=== PATIENT | male | born 1970 | race African-American/Black ===

== ENCOUNTER 2016-12-16 21:13 | Inpatient (IN) | payer SELFPAY ==
--- NOTE | 2016-12-16 22:14 | EKG REPORT ---
SEVERITY:- BORDERLINE ECG - SINUS RHYTHM PROBABLE LEFT ATRIAL ABNORMALITY ST ELEV, PROBABLE NORMAL EARLY REPOL PATTERN : Confirmed by: Nubia Guadarrama MD 16-Dec-2016 22:13:33
[2016-12-17] MEDS ORDERED: ONDANSETRON HCL INJ/PF 4 MG/2 ML SDV ONE (05:17)
[2016-12-17] MEDS ORDERED: METOCLOPRAMIDE HCL ORAL SOLN 10 MG/10 ML UDCUP ONE (06:05)
[2016-12-17] MEDS ORDERED: LIDOCAINE 2% VISCOUS SOLN 20 ML UDCUP ONE (06:05)
[2016-12-17] MEDS ORDERED: MAG HYDROX/AL HYDROX/SIMETH SUSP 30 ML UDCUP ONE (06:05)
[2016-12-17] MEDS ORDERED: DEXTROSE 50%-WATER 25 GM/50 ML DISP.SYRIN IV ONE (06:49)
[2016-12-17] MEDS ORDERED: CALCIUM GLUCONATE 1000 MG/10 ML INJ IV ONE (06:50)
[2016-12-17] MEDS ORDERED: LIDOCAINE 1% INJ-PF (10 MG/ML) 30 ML SDV ONE (11:04)
--- NOTE | 2016-12-17 16:40 | OPERATIVE REPORT E ---
Operative Report NAME: CHRISTI PICKERING : 1970 AGE: 46Y DATE OF SURGERY: 12/17/2016 ROOM: PREOPERATIVE DIAGNOSIS: Hyperkalemia needing hemodialysis catheter placement. PROCEDURE: Placement of right internal jugular tri-lumen hemodialysis catheter using ultrasound guidance. SURGEON: MISSY PEDRO M.D. ANESTHESIA: 1% lidocaine. INDICATIONS FOR PROCEDURE: Patient presents with hyperkalemia needing probable dialysis. A tri-lumen hemodialysis catheter has been requested. FINDINGS OF THE PROCEDURE: A tri-lumen hemodialysis catheter was placed using ultrasound via the right internal jugular vein. There was good aspiration of blood through the ports after placement with them being flushed easily. PROCEDURE: After informed consent was obtained, the patient was placed in a supine position in the emergency room. The patient's right neck was prepped and draped in the usual sterile fashion. Using ultrasound, the right internal jugular vein was then identified as well as the internal carotid artery. The skin overlying the vein was then injected with 1% lidocaine. An 18-gauge needle was then inserted through the skin into the internal jugular vein under ultrasound guidance. There was return of dark, nonpulsatile blood. A guidewire was placed through the needle and the needle was withdrawn. The 2 dilators were then placed over the guidewire and removed sequentially. The tri-lumen hemodialysis catheter was then placed over the guidewire and the guidewire was removed. There was good aspiration of blood through all 3 ports with all 3 ports being flushed easily. The catheter was secured to the skin using 3-0 nylon suture. A dry dressing was applied. STAT chest x-ray was ordered. No immediate complications. DICTATING PHYSICIAN: MISSY PEDRO M.D. [id number] PHY#: [id number] ID: [id number] JOB#: [id number] ACCT: [id number] cc:MISSY PEDRO M.D. >
[2016-12-17] MEDS ORDERED: HEPARIN SOD (PORCINE) 1,000 UNIT/ML 10 ML VIAL ONE (17:36)
[2016-12-18 00:24] LABS: ANION GAP 10 (5-19); BLOOD UREA NITROGEN 26 mg/dL (7-20); CALCIUM 8.2 mg/dL (8.4-10.2); CARBON DIOXIDE 26 mmol/L (22-30); CHLORIDE 103 mmol/L (98-107); CREATININE RESULT 1.53 mg/dL (0.52-1.25); GLUCOSE 106 mg/dL (75-110); POTASSIUM 3.7 mmol/L (3.6-5.0); SODIUM 138.7 mmol/L (137-145)
[2016-12-18] MEDS ORDERED: HEPARIN SOD (PORCINE) 5,000 UNIT/ML 1 ML SYRINGE ONE (06:11)
[2016-12-18] MEDS: HEPARIN SOD (PORCINE) 5,000 UNIT/ML 1 ML SYRINGE SUBCUT SCH ×3 (06:33→21:15)
[2016-12-18 06:45] LABS: APPEARANCE,URINE CLEAR; BILIRUBIN,URINE NEGATIVE (NEGATIVE); GLUCOSE, URINE NEGATIVE (NEGATIVE); KETONES,URINE NEGATIVE (NEGATIVE); LEUKOCYTE ESTERASE,URINE NEGATIVE (NEGATIVE); NITRITE,URINE NEGATIVE (NEGATIVE); PROTEIN,URINE NEGATIVE (NEGATIVE); URINE SPECIFIC GRAVITY 1.019; UROBILINOGEN,URINE NEGATIVE mg/dL (<2.0)
[2016-12-18 07:02] LABS: ANION GAP 9 (5-19); BLOOD UREA NITROGEN 23 mg/dL (7-20); CALCIUM 8.2 mg/dL (8.4-10.2); CARBON DIOXIDE 27 mmol/L (22-30); CHLORIDE 105 mmol/L (98-107); CREATININE RESULT 1.45 mg/dL (0.52-1.25); GLUCOSE 98 mg/dL (75-110); POTASSIUM 4.3 mmol/L (3.6-5.0); SODIUM 140.9 mmol/L (137-145)
[2016-12-18 07:05] LABS: URINE BARBITURATES SCREEN NEGATIVE; URINE METHADONE SCREEN NEGATIVE; URINE OPIATES LOW NEGATIVE; URINE PHENCYCLIDINE SCREEN NEGATIVE
--- NOTE | 2016-12-18 08:57 | HISTORY AND PHYSICAL E ---
History and Physical NAME: CHRISTI PICKERING : 1970 AGE: 46Y ADMITTED: 12/16/2016 ROOM: [facility] PRIMARY CARE PHYSICIAN: None. REASON FOR ADMISSION: Nausea, vomiting, and dizziness. HISTORY OF PRESENT ILLNESS: The patient is a 46-year-old male with no significant past medical history, works actively in his business, which is [employer]. Yesterday, all day, the patient had been working hard without breakfast as well as lunch, nor dinner. He tried to finish the work. Later on in the day, he noticed darkening of urine to like a tea color. He subsequently developed some cramping and eventually developed abdominal discomfort with associated nausea and vomiting. He likewise developed spasms. He started feeling sweaty, lightheaded, and dizzy. The patient went home and rested. The patient stated that he has a cooler in his trunk and he drinks enough fluids. However, this morning, his symptoms still persisted. He started having episodes of diarrhea, but only on 1 occasion. The spasms persisted, nausea and vomiting persisted, abdominal pain is worse. There is no definite fever. No dysuria, urgency, or frequency. No penile discharge or bleeding. The patient went to the emergency room for evaluation. He was found to have a potassium of 6.68, creatinine of 3.75, BUN of 41.8. EKG: Sinus tachycardia. The patient was given fluids. The patient was given albuterol as well as calcium and insulin and D50. The patient was then referred for admission. PAST MEDICAL HISTORY: None. PAST SURGICAL HISTORY: None. ALLERGIES: He denies any drug allergies. SOCIAL HISTORY: Smokes about 3 packs of cigarettes per day, but denies drug abuse. Occasionally drinks alcohol. FAMILY HISTORY: Family history is negative for any illness. MEDICATIONS: He is not on any prescription medication. REVIEW OF SYSTEMS: The patient denies any chills or fever. There is occasional muscle aches and pain, but no arthralgias. There is no headache, but slightly dizzy and lightheaded. There is no blurring of vision, doubling of vision. No nasal congestion, postnasal drip, or sneezing. No sore throat, no swollen glands in the neck. There is no cough. There is no hemoptysis. There is no chest pain, palpitations, PND, orthopnea. The patient had easy fatigability, but no shortness of breath at rest. There is no wheezing. No hemoptysis. There is no chest pain. No palpitations, PND, orthopnea. There is no melena, hematochezia, hematemesis. No dysuria, urgency, or frequency. No penile discharge or bleeding. No heat or cold intolerance. The patient has some sweating as stated above. No polyuria, polydipsia, polyphagia. No focal weakness, swallowing difficulty, slurring of speech. There is no rash or pruritus. No bleeding tendencies or easy bruisability. All other systems reviewed with the patient other than stated above were negative. PHYSICAL EXAMINATION: GENERAL: The patient is conscious, coherent. He is not in acute distress at the moment. VITAL SIGNS: Blood pressure 118/72, pulse is 112, respirations of 20, temperature - patient is afebrile. HEENT: Normocephalic, atraumatic. [place] palpebral conjunctivae. Anicteric sclerae. Pupils are reactive to light. No nasal or oral discharge. No pharyngeal congestion. NECK: Supple with no JVD or bruit. No anterior neck mass that moves with swallowing. CHEST: Symmetrical on expansion with no retraction. LUNGS: Clear to auscultation bilaterally. No wheezing. No rales were noted. HEART: Regular. No gallops or murmurs. [place] beat fifth left intercostal space midclavicular line. No heaves or thrills were noted. ABDOMEN: Flat. Soft. Minimal discomfort to deep palpation. No rebound or guarding. No bruit. Bowel sounds are normoactive. EXTREMITIES: Lower extremities are non-edematous. Pulses are present bilaterally and equal. Mucosa in nail beds with no cyanosis. DIAGNOSTIC DATA: Initial laboratory: WBC 13.3, hemoglobin 18.7, hematocrit 55.4, platelets of 274. CPK total of 1495. WBC in the urine is 40. Creatinine 3.75, BUN 41.8, glucose 133, sodium 143, potassium 6.68. Troponin reportedly negative. Total protein reportedly 10.53. ASSESSMENT: 1. Acute renal failure. 2. Hyperkalemia. 3. Leukocytosis. 4. Heat exhaustion. PLAN: The patient will be admitted to [facility]. Nephrology was consulted for further management. Temporary dialysis catheter was placed by the surgical service, Dr. Bojorquez. In the meantime, we will recheck potassium level, I will hydrate the patient with normal saline. We will obtain a renal ultrasound. We will monitor electrolytes and creatinine. I will do a rheumatoid factor as well as NIALL. We will also do C-ANCA and P-ANCA. A thyroid panel will also be obtained. DVT prophylaxis with heparin will be placed. Further testing depends on the initial evaluation as outlined above. DICTATING PHYSICIAN: LARRY CORDOVA M.D. [id number] PHY#: [id number] ID: [id number] JOB#: [id number] ACCT: [id number] cc:[facility], MD [place] CORDOVA, LARRY Kumar >
--- NOTE | 2016-12-18 09:37 | CONSULTATION REPORT E ---
Consultation Report NAME: CHRISTI PICKERING : 1970 AGE: 46Y DATE: 12/16/2016 313 A TO: GENESIS SWAIN M.D. FROM: Requesting Physician REASON FOR CONSULTATION: I was asked by the emergency room provider and the hospitalist service, Dr. Cameron, to see this patient because of acute kidney injury and severe hyperkalemia. HISTORY OF PRESENT ILLNESS: The patient is a 46-year-old -[place], pleasant, gentleman without any significant past medical history who went to the emergency room yesterday at around 9 p.m. because of persistent nausea, vomiting. Patient works as a er tech. He said yesterday he worked the whole day and it was a pretty warm day. He said he did not eat anything the whole day but he did try to drink some Gatorade. At around 6 p.m. when he got home, he was not feeling so well and then he started having muscle spasms all over his body from his neck, his arms, his abdomen, his upper and lower extremities. He also started having some nausea and vomiting almost every 10 to 15 minutes and some dizziness. So, he went to the emergency room at around 9 p.m. and he was back in a room at around 4 a.m. He denied any other complaints including fever, chills, cough, colds, chest pain, shortness of breath. He did not really notice any difference in his urine volume yesterday, however, when they asked him for a urine sample early this morning, he said it was tea colored, even looking dark brown. He denies any history of kidney problems in the past. He has not had any kidney stones. He denies any history of hepatitis. He denies any leg swelling. When he came in, he had a BUN of 41.8, creatinine of 3.25 with potassium as high as 6.75 and a calcium of 11.32. Because of severe hyperkalemia, I was then called for consultation early this morning. He had an EKG with some relatively peaked T waves on the precordial leads. So I spoke to the emergency room physician and because of the severe hyperkalemia and some EKG changes, we plan to do a dialysis treatment for this patient. A dialysis catheter was placed by our surgeon, Dr. Bojorquez. While waiting for the dialysis, patient was unable to be given Kayexalate because of the severe vomiting, so I was told that he was given calcium gluconate, insulin with D50/50, and some albuterol neb treatments. He was also given 3 L of IV fluids and when he got here in the ICU prior to dialysis, he is already on his fourth liter of fluid. Patient said that his urine starting clearing up, now it is yellow in color. When I was talking to him this afternoon, he said he is feeling much better. He does not have any more spasms and his nausea and vomiting is much improved. So, this afternoon I am seeing him during dialysis treatment. He is tolerating the procedure well without any problems so far. He is hemodynamically stable and currently his symptoms has really been improved. Review of further testing was done showed that he had an urinalysis in the ER with protein of 100 but no blood although there with a RBC of 6 per high powered field and WBC of 40 per high powered field, but there is significant amount of hyaline cast significant for dehydration. His EKG showed again as mentioned, some peaked T waves in the precordial leads. He denies any other complaints at the moment during dialysis. PAST MEDICAL HISTORY: Patient denies any significant health issues. He denies any diabetes or hypertension. No heart disease. PAST SURGICAL HISTORY: Nothing significant. ALLERGIES: No known drug allergies. MEDICATIONS: None. PERSONAL SOCIAL HISTORY: He smokes about 4-5 cigarettes a day. He drinks about a 6-pack of beer a week. He denies any drug use. He lives with his and they just got . He has a child on the way. FAMILY HISTORY: He denies any significant history other than hypertension in his mother. He denies any known kidney history in the family. REVIEW OF SYSTEMS: GENERAL: When he came in, he was just overall not feeling good but denies any fever. No chills. EYES: No vision problem or eye pain. EARS, NOSE, AND THROAT: No sore throat or sinus congestion. RESPIRATORY: No cough, wheezing, shortness of breath. CARDIOVASCULAR: No chest pain, orthopnea, PND, or leg swelling. GASTROINTESTINAL: He has some positive nausea and vomiting and abdominal pain described as cramping. No diarrhea. GENITOURINARY: No dysuria, urgency, or frequency. He did have some tea colored urine. HEMATOLOGIC: He does not have anemia. No bleeding dyscrasias. ENDOCRINE: No polyuria or polydipsia. PSYCHIATRIC: No depression or anxiety. NEUROLOGIC: No localized weakness or numbness. All systems otherwise negative. PHYSICAL EXAMINATION: GENERAL: Currently patient is awake, alert, communicative, not in any form of any acute cardiorespiratory distress. Tolerating dialysis well. VITAL SIGNS: Blood pressure 124/91, pulse rate of 73, respirations of 17, oxygen saturation 90% on room air. HEENT: He has a normocephalic/atraumatic head. [place] conjunctivae. Anicteric sclerae. Pupils reactive to light. Nose patent. No tonsillar or pharyngeal congestion. NECK: Supple. No cervical lymphadenopathy. No JVD. No thyromegaly. LUNGS: Clear. No crackles or wheezes. No rhonchi. HEART: Regular rate and rhythm. Positive S1, S2. No S3. No S4. No murmurs heard. ABDOMEN: Positive bowel sounds. Soft, nontender. No rebound or guarding. No hepatosplenomegaly. EXTREMITIES: No edema. SKIN: No jaundice or cyanosis. LYMPHATIC: No cervical or axillary lymphadenopathy. VASCULAR: Bilateral apical pulses symmetrical. PSYCHIATRIC: He is cooperative, appropriate, coherent. NEUROLOGIC: Oriented x3. Cranial nerves II-XII intact. Motor and sensory exams grossly normal. INITIAL LABORATORY: Urinalysis: Glucose negative, protein 100, bilirubin negative, urobilinogen negative, Ph of 5, blood negative, ketones negative, nitrate negative, leukocyte small, clarity cloudy, specific gravity 1.027, michael in color, WBC of 40 per high powered field, red blood cells 6 per high powered field, hyaline casts 52 per low powered field. His CK was slightly elevated at 1495.62. CBC: WBC of 13.8, hemoglobin of 18, hematocrit 53.2, platelet count of 282. Repeat potassium was 6.75. Initial CMP include a glucose of 132.92, total protein greater than 11, albumin 5.62, chloride 97.46, potassium 6.68, sodium 143.5, BUN of 41.81, creatinine of 3.75, calcium of 11.32, total bilirubin 1.59, AST of 7.36, alk phos 78.33, ALT of 46.25, direct bilirubin of 0.64. He did have repeat potassium after 3 L of fluid and this came out to be 4.64 but BUN still elevated at 39.23 and creatinine still elevated at 2.32. ASSESSMENT: 1. Acute kidney injury. Patient is nonoliguric, most likely secondary to prerenal azotemia secondary to very severe dehydration. Cannot exclude glomerular disease but possibility is very low. Patient does have very mild proteinuria but no significant hematuria. This might just be secondary to severe dehydration as evident by significant hyaline cast in the urine. 2. Severe hyperkalemia secondary to acute kidney injury. 3. Hypercalcemia secondary to dehydration. 4. Dehydration with nausea and vomiting. PLAN/RECOMMENDATIONS: At this time, we are going to continue dialysis due to the patient's acute kidney injury and hyperkalemia. We will do dialysis for 2-1/2 hours only using 2 potassium bath. We are going to use his newly placed Trialysis catheter. We will not use any heparin. No Procrit and no ultrafiltration. Dr. Cameron, the hospitalist, has ordered some workup including 24-hour urine collection for protein, creatinine clearance, C-ANCA, P-ANCA, NIALL, and rheumatoid factor. I will not order any other further serology at this time because as mentioned above, I think this is just prerenal azotemia. I expect his kidney function including the electrolytes including potassium and calcium to be much improved and probably normal by tomorrow. Monitor kidney function, electrolytes, and urine output after dialysis. I will not be available starting tonight until Thursday. I will inform Dr. Justo Thayer who will be covering me in my absence to followup the patient. Thank you very much for this consultation. DICTATING PHYSICIAN: GENESIS SWAIN M.D. [id number] PHY#: [id number] ID: [id number] JOB#: [id number] ACCT: [id number] cc:GENESIS SWAIN M.D. >
[2016-12-18] MEDS ORDERED: NORMAL SALINE 1000 ML 1,000 ML IV PRN (10:40)
[2016-12-18] MEDS: LANSOPRAZOLE 30 MG TAB.RAP.DR PO SCH (10:47)
[2016-12-18] MEDS: DOCUSATE SODIUM 100 MG CAPSULE PO SCH ×2 (10:47→17:58)
[2016-12-18 12:37] LABS: HEMATOCRIT 55.4 % (37.9-51.0); HEMOGLOBIN 18.7 g/dL (13.5-17.0); HGB HCT DIFFERENCE 0.7; MEAN CORPUSCULAR HEMOGLOBIN 27.1 pg (27.0-33.4); MEAN CORPUSCULAR HGB CONC 33.7 g/dL (32.0-36.0); MEAN CORPUSCULAR VOLUME 81 fl (80-97); RED BLOOD COUNT 6.89 10^6/uL (4.35-5.55); RED CELL DISTRIBUTION WIDTH 13.8 % (11.5-14.0); WHITE BLOOD COUNT 13.3 10^3/uL (4.0-10.5)
--- NOTE | 2016-12-18 12:37 | PROGRESS NOTE E ---
Progress Note NAME: CHRISTI PICKERING : 1970 AGE: 46Y DATE: 12/18/2016 ROOM: 313 SUBJECTIVE: The patient voiced no complaints at all. No chest pain or pleurisy. No shortness of breath, nausea or vomiting, abdominal pain, chills or fever. Urine output, however, reportedly still low. Denies any dysuria, urgency, or frequency. OBJECTIVE: VITAL SIGNS: Blood pressure 107/77, pulse 77, respirations 20, temperature 97.3. GENERAL: The patient is awake. She is not in acute distress. NECK: No jugular venous distention. LUNGS: Lung sounds are clear to auscultation bilateral. No rales or wheezing. HEART: Regular with no gallops or murmurs. ABDOMEN: Soft, nondistended. Bowel sounds are present. EXTREMITIES: Lower extremities nonedematous. Mucosae and nail beds with no cyanosis. LABORATORY: Potassium is now normal. Creatinine down to 1.45. TSH elevated at 11.5. Urine culture is pending. ASSESSMENT: 1. ACUTE RENAL FAILURE. 2. HYPERKALEMIA. 3. LEUKOCYTOSIS. 4. HEAT EXHAUSTION. 5. ELEVATED TSH. PLAN: 1. Continue IV hydration and monitor urine output. 2. Check free T4. 3. Continue supportive care. 4. Awaiting serologies and 24-hour urine to be completed. DICTATING PHYSICIAN: LARRY CORDOVA M.D. [id number] PHY#: [id number] ID: [id number] JOB#: [id number] ACCT: [id number] cc: >
[2016-12-18 12:38] LABS: BASOPHILS % (MANUAL) 0 % (0-2); EOSINOPHILS % (MANUAL) 0 % (0-6); LYMPHOCYTES % (MANUAL) 12 % (13-45); NUCLEATED RED BLOOD CELLS 1 /100 WBC (0); POLYCHROMASIA SLIGHT; TARGET CELLS 1+; TOTAL CELLS COUNTED 100; TOXIC GRANULATION SLIGHT
[2016-12-18 13:36] LABS: APPEARANCE,URINE CLOUDY; BILIRUBIN,URINE NEGATIVE (NEGATIVE); GLUCOSE, URINE NEGATIVE (NEGATIVE); KETONES,URINE NEGATIVE (NEGATIVE); LEUKOCYTE ESTERASE,URINE SMALL (NEGATIVE); NITRITE,URINE NEGATIVE (NEGATIVE); PROTEIN,URINE 100 mg/dL (NEGATIVE); URINE SPECIFIC GRAVITY 1.027; UROBILINOGEN,URINE NEGATIVE mg/dL (<2.0)
[2016-12-18] MEDS ORDERED: CEFAZOLIN 1 GM/D5W RTU 1 GM/50 ML RTUPB IV ONE (19:30)
--- NOTE | 2016-12-18 20:29 | PDOC PROGRESS REPORT ---
Subjective Progress Note for:: 12/18/16 Subjective:: Covering for Dr Palomino.C/o painful, tender red streak on right arm today.No fever or chills.Had difficult vensection yesterday in rifgt ante cubital vein. Making good urine. Physical Exam Vital Signs: Temp Pulse Resp BP Pulse Ox 98.5 F 67 19 121/85 100 12/18/16 15:19 12/18/16 15:19 12/18/16 15:19 12/18/16 15:19 12/18/16 15:19 Intake & Output 12/17/16 12/18/16 12/19/16 06:59 06:59 06:59 Intake Total 1800 3101 Output Total 1550 Balance 1800 1551 Weight 81.5 kg General appearance: PRESENT: no acute distress Exam: red tender phelbitis over right arm Respiratory exam: PRESENT: clear to auscultation vicente. ABSENT: crackles Cardiovascular exam: PRESENT: +S1, +S2 Results Laboratory Results: 12/18/16 06:20 12/18/16 12/18/16 12/18/16 05:21 06:20 06:20 Sodium 140.9 Potassium 4.3 Chloride 105 Carbon Dioxide 27 Anion Gap 9 BUN 23 H Creatinine 1.45 H Est GFR ( Amer) > 60 Est GFR (Non-Af Amer) 53 L Glucose 98 Calcium 8.2 L TSH 11.50 H Free T4 Urine Color YELLOW Urine Appearance CLEAR Urine pH 7.0 Ur Specific Rogers 1.019 Urine Protein NEGATIVE Urine Glucose (UA) NEGATIVE Urine Ketones NEGATIVE Urine Blood NEGATIVE Urine Nitrite NEGATIVE Ur Leukocyte Esterase NEGATIVE Urine WBC (Auto) 5 12/18/16 06:20 Sodium Potassium Chloride Carbon Dioxide Anion Gap BUN Creatinine Est GFR ( Amer) Est GFR (Non-Af Amer) Glucose Calcium TSH Free T4 0.82 Urine Color Urine Appearance Urine pH Ur Specific Rogers Urine Protein Urine Glucose (UA) Urine Ketones Urine Blood Urine Nitrite Ur Leukocyte Esterase Urine WBC (Auto) Impressions: Chest X-Ray 12/18/16 00:00 IMPRESSION: NO ACUTE RADIOGRAPHIC FINDING IN THE CHEST. Trialysis catheter. Renal Ultrasound 12/18/16 00:00 IMPRESSION: NORMAL RENAL AND BLADDER ULTRASOUND. Assessment & Plan - Diagnosis (1) AWAIS (acute kidney injury) Plan: stable on current treatments.See need for dialysis in Am (3) Thrombophlebitis arm Plan: get blood c&s x 2. Start IV Ancef 1 gm bid.
[2016-12-18 20:58] LABS: URINE CREATININE 98.9 mg/dL (22-328); URINE PROTEIN 8.5 mg/dL (<12)
[2016-12-19] MEDS: HEPARIN SOD (PORCINE) 5,000 UNIT/ML 1 ML SYRINGE SUBCUT SCH (06:51)
[2016-12-19 07:17] LABS: ANION GAP 7 (5-19); BLOOD UREA NITROGEN 14 mg/dL (7-20); CALCIUM 8.4 mg/dL (8.4-10.2); CARBON DIOXIDE 27 mmol/L (22-30); CHLORIDE 108 mmol/L (98-107); CREATININE RESULT 1.11 mg/dL (0.52-1.25); GLUCOSE 97 mg/dL (75-110); POTASSIUM 4.1 mmol/L (3.6-5.0); SODIUM 142.4 mmol/L (137-145)
[2016-12-19 08:32] VITALS: BP 137/90
[2016-12-19] MEDS: DOCUSATE SODIUM 100 MG CAPSULE PO SCH (08:38)
[2016-12-19] MEDS: LANSOPRAZOLE 30 MG TAB.RAP.DR PO SCH (08:40)
[2016-12-19] MEDS ORDERED: CEFAZOLIN 1 GM/D5W RTU 1 GM/50 ML RTUPB IV SCH (10:00)
[2016-12-19 15:35] LABS: BLOOD UREA NITROGEN 42 mg/dL (7-20); CALCIUM 11.3 mg/dL (8.4-10.2); CREATININE RESULT 3.75 mg/dL (0.52-1.25); GLUCOSE 134 mg/dL (75-110)
[2016-12-19 15:38] LABS: CARBON DIOXIDE 23 mmol/L (22-30); CHLORIDE 97 mmol/L (98-107); POTASSIUM 6.8 mmol/L (3.6-5.0); SODIUM 143.5 mmol/L (137-145)
[2016-12-19 15:39] LABS: ALANINE AMINOTRANSFERASE 46 U/L (21-72); ALBUMIN 5.6 g/dL (3.5-5.0); ALKALINE PHOSPHATASE 78 U/L (38-126); ANION GAP 24 (5-19); ASPARTATE AMINO TRANSFERASE 57 U/L (17-59); BILIRUBIN,DIRECT 0.6 mg/dL (0.0-0.4); BILIRUBIN,TOTAL 1.6 mg/dL (0.2-1.3)
[2016-12-19 15:40] LABS: TOTAL PROTEIN 10.5 g/dL (6.3-8.2)
[2016-12-19 15:42] LABS: BLOOD UREA NITROGEN 39 mg/dL (7-20); CALCIUM 9.5 mg/dL (8.4-10.2); CREATININE RESULT 2.32 mg/dL (0.52-1.25); GLUCOSE 110 mg/dL (75-110)
[2016-12-19 15:44] LABS: ALBUMIN 4.3 g/dL (3.5-5.0); ANION GAP 12 (5-19); CARBON DIOXIDE 21 mmol/L (22-30); CHLORIDE 107 mmol/L (98-107); POTASSIUM 4.6 mmol/L (3.6-5.0); SODIUM 139.9 mmol/L (137-145)
[2016-12-19 15:45] LABS: ALANINE AMINOTRANSFERASE 31 U/L (21-72); ALKALINE PHOSPHATASE 56 U/L (38-126); ASPARTATE AMINO TRANSFERASE 42 U/L (17-59); BILIRUBIN,DIRECT 0.5 mg/dL (0.0-0.4); BILIRUBIN,TOTAL 1.5 mg/dL (0.2-1.3); TOTAL PROTEIN 7.7 g/dL (6.3-8.2)
--- NOTE | 2016-12-19 16:20 | XCELERA REPORT ---
[address] [address] Upper Extremity Venous Evaluation Name: CHRISTI PICKERING Age: 46 yrs Gender: Male : 1970 Patient Status: Inpatient Patient Location: [id number]\S\313\S\A Study Date: 12/18/2016 08:41 PM Procedure: Unilateral duplex scan of the right upper extremity veins was performed, including responses to compression and other maneuvers. Reason For Study: LIZZIE owen Ordering Physician: LARRY CORDOVA Performed By: Becky Rodrigues Right Side Venous Evaluation Superficial phlebitis in the Cephalic vein. Normal vessel filling wall to wall, compression and augmentation as well as Colour flow down to the forearm veins. Interpretation Summary No duplex evidence of DVT or obstruction in the right upper extremity. Superficial phlebitis, as noted. : LARRY CORDOVA [place]
--- NOTE | 2016-12-19 19:27 | DISCHARGE SUMMARY E ---
Discharge Summary NAME: CHRISTI PICKERING : 1970 AGE: 46Y ADMITTED: 12/18/2016 DISCHARGED: 12/19/2016 FINAL DIAGNOSES: 1. Acute renal failure secondary to severe dehydration. 2. Hyperkalemia secondary to acute renal failure. 3. Hypercalcemia secondary to dehydration. 4. Thrombophlebitis of the right upper extremity. INSTRUCTIONS: Diet is regular. Activity is as tolerated. Increase oral fluid intake. Follow up final report of blood test as outpatient with primary care physician or Dr. Palomino. Appointments: Primary care physician in 1 week, Dr. Palomino in 1-2 weeks. MEDICATIONS: Cephalexin 500 mg p.o. 4 times a day for 1 week. REASON FOR ADMISSION: Nausea, vomiting and dizziness. HISTORY OF PRESENT ILLNESS/SIGNIFICANT FINDINGS: The patient is a 46-year-old male with no significant past medical history who has been working hard for the last 24 hours with his [employer] business without drinking enough fluid and having breakfast, lunch or dinner in an attempt to try to finish his work. He started to develop nausea, vomiting and dizziness. The patient went to the emergency room for evaluation. He was found to have a potassium of 6.68 and creatinine of 3.37. Intravenous fluids were given as well as insulin, D50, albuterol. The patient was then referred for admission. On examination, blood pressure was 118/72, pulse 112, respirations 20, and the patient was afebrile. General physical examination was essentially unremarkable, however. Initial laboratory had a WBC of 13.3, hemoglobin 18.7, hematocrit 55.4, platelet count 274, CPK total of 1495. WBC in the urine is 40. Creatinine is 3.75. Troponin was negative. Total protein mildly elevated at 10.53. The patient was subsequently admitted for further management. CONSULTATION: Dr. Palomino. Additional consultation with Dr. Bojorquez. PROCEDURE: Emergent hemodialysis. HOSPITAL COURSE: The patient was admitted to the [facility]. Dr. Bojorquez was consulted as well as Dr. Palomino, nephrology, was consulted. Emergent vascular catheter was placed and eventually the patient underwent hemodialysis. Subsequently the patient's hyperkalemia was corrected and creatinine trended down. The patient was begun on intravenous fluid hydration. His calcium level normalized subsequently. With the above measures, his creatinine likewise improved and normalized. The patient's symptomatology resolved. Course was noted, however, for some redness on the right upper extremity from a previous venipuncture site. Suspected thrombophlebitis was made and, therefore, an antibiotic was started. Venous ultrasound was negative for DVT as reported. The patient improved, creatinine normalized, potassium was normal. The rest of the hospital stay was essentially unremarkable. The patient was instructed to follow up results on an outpatient basis as stated above. A 24-hour urine for protein was essentially unremarkable for significant proteinuria. DICTATING PHYSICIAN: LARRY CORDOVA M.D. [id number] PHY#: [id number] ID: [id number] JOB#: [id number] ACCT: [id number] cc:LARRY CORDOVA M.D. > MTDD
== END 2016-12-19 12:00 | disposition home or self-care (01) | DRG 684 ==
LOC: ER 21:13 → UNDOADMIN 12-17 08:00 → ICU 12-17 08:00 → 3W 12-17 18:00 → ICU 12-18 02:15 → 3W 12-18 02:15
PROC: 5A1D00Z (ICD-10-PCS; principal; 2016-12-17)
PROC: 02HV33Z Insertion of Infusion Device into Superior Vena Cava, Percutaneous Approach (ICD-10-PCS; 2016-12-17)
PROC: B548ZZA Ultrasonography of Superior Vena Cava, Guidance (ICD-10-PCS; 2016-12-17)
DX: N17.9 Acute kidney failure, unspecified (principal); E87.5 Hyperkalemia; I80.8 Phlebitis and thrombophlebitis of other sites; E83.52 Hypercalcemia; E86.0 Dehydration; F17.210 Nicotine dependence, cigarettes, uncomplicated; X30.XXXA Exposure to excessive natural heat, initial encounter; Y93.H2 Activity, gardening and landscaping; Y92.9 Unspecified place or not applicable
CPT/HCPCS: 36415; 71010; 76770; 80048; 80053; 80307; 81001; 82550; 82570; 84156; 84439; 84443; 84484; 85025; 85652; 86038; 86304; 86430; 87040; 87086; 93005; 93010; 93971; 96361; 96365; 96375; 99285; C1752; J0690; J1644

== ENCOUNTER 2017-08-27 11:30 | Emergency (ER) | payer OTHER ==
[2017-08-27 11:53] VITALS: BP 134/99
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
[2017-08-27] MEDS ORDERED: HYDROCODONE/ACETAMINOPHEN 5-325 MG TABLET PO ONE (14:14)
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
== END 2017-08-27 16:13 | disposition home or self-care (01) ==
LOC: ER 11:30
DX: S49.92XA Unspecified injury of left shoulder and upper arm, initial encounter (principal); M54.5 Low back pain; V58.6XXA Passenger in pick-up truck or van injured in noncollision transport accident in traffic accident, initial encounter; F17.210 Nicotine dependence, cigarettes, uncomplicated
CPT/HCPCS: 99284; 73030; 72125; 72128; 72131; L0120

== ENCOUNTER 2017-08-31 17:39 | Emergency (ER) | payer SELFPAY ==
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
[2017-08-31 19:20] VITALS: BP 132/97
== END 2017-08-31 19:20 | disposition home or self-care (01) ==
LOC: ER 17:39
DX: S06.0X0A Concussion without loss of consciousness, initial encounter (principal); S16.1XXA Strain of muscle, fascia and tendon at neck level, initial encounter; R51 Headache; R42 Dizziness and giddiness; R11.0 Nausea; M54.9 Dorsalgia, unspecified; M54.2 Cervicalgia; H53.8 Other visual disturbances; V87.7XXA Person injured in collision between other specified motor vehicles (traffic), initial encounter
CPT/HCPCS: 99283

== ENCOUNTER 2017-09-20 12:42 | Emergency (ER) | payer OTHER ==
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
[2017-09-20 17:17] VITALS: BP 130/82
== END 2017-09-20 17:15 | disposition home or self-care (01) ==
LOC: ER 12:42
DX: F07.81 Postconcussional syndrome (principal); S09.90XA Unspecified injury of head, initial encounter; R42 Dizziness and giddiness; M54.2 Cervicalgia; R20.0 Anesthesia of skin; H53.8 Other visual disturbances; V58.1XXA Passenger in pick-up truck or van injured in noncollision transport accident in nontraffic accident, initial encounter; F17.200 Nicotine dependence, unspecified, uncomplicated
CPT/HCPCS: 72141; 99284

== ENCOUNTER 2018-01-28 17:31 | Emergency (ER) | payer OTHER ==
[2018-01-28] MEDS ORDERED: ONDANSETRON 4 MG TAB.RAPDIS PO ONE (18:12)
[2018-01-28] MEDS ORDERED: NORMAL SALINE 1000 ML 1,000 ML IV ONE ×2 (18:12→20:01)
[2018-01-28] MEDS ORDERED: ACETAMINOPHEN 325 MG TABLET PO ONE (18:12)
--- NOTE | 2018-01-28 18:14 | ER Document Report ---
ED Medical Screen (RME) - General Chief Complaint: Nausea/Vomiting Stated Complaint: NAUSEA/VOMITTING Time Seen by Provider: 01/28/18 18:07 Notes: RAPID MEDICAL EVALUATION DISCLOSURE I have seen this patient as part of a Rapid Medical Evaluation and, if applicable, placed any initially appropriate orders. The patient will be seen and fully evaluated, including a full history and physical exam, by a provider ( in Main ED or Fast Track) when a room becomes available. 47-year-old male here with complaints of generalized weakness feeling bad and possible dehydration. He has been cutting grass all day in the 100 weather outside. He has been using a riding mower instead of a push mower. He has been trying to stay hydrated however is unsure if he has done a good job of this. He had something similar last year and required dialysis but does not currently have any kidney disease, reports. EXAM CTAB RRR Alert and oriented TRAVEL OUTSIDE OF THE [place] IN LAST 30 DAYS: No - Related Data Allergies/Adverse Reactions: No Known Allergies Allergy (Verified 01/28/18 17:32) Past Medical History - Social History Chew tobacco use (# tins/day): No Frequency of alcohol use: Occasional Drug Abuse: None Renal/ Medical History: Denies: Hx Peritoneal Dialysis - Immunizations Hx Diphtheria, Pertussis, Tetanus Vaccination: Yes Physical Exam - Vital signs Vitals: Temp Pulse Resp BP Pulse Ox 98.1 F 86 20 133/88 H 100 01/28/18 17:35 01/28/18 17:35 01/28/18 17:35 01/28/18 17:35 01/28/18 17:35 Course - Vital Signs Vital signs: Temp Pulse Resp BP Pulse Ox 98.1 F 86 20 133/88 H 100 01/28/18 17:35 01/28/18 17:35 01/28/18 17:35 01/28/18 17:35 01/28/18 17:35
[2018-01-28 19:19] LABS: ABSOLUTE BASOPHILS # (AUTO) 0.1 10^3/uL (0.0-0.2); ABSOLUTE EOSINOPHILS # (AUTO) 0.2 10^3/uL (0.0-0.6); ABSOLUTE LYMPHOCYTES (AUTO) 2.1 10^3/uL (0.5-4.7); ABSOLUTE MONOCYTES (AUTO) 0.5 10^3/uL (0.1-1.4); ABSOLUTE NEUT (AUTO) 4.5 10^3/uL (1.7-8.2); BASOPHILS % (AUTO) 0.7 % (0-2); EOSINOPHILS % (AUTO) 3.4 % (0-6); HEMATOCRIT 47.4 % (37.9-51.0); HEMOGLOBIN 16.4 g/dL (13.5-17.0); LYMPHOCYTES % (AUTO) 27.9 % (13-45); MEAN CORPUSCULAR HEMOGLOBIN 27.9 pg (27.0-33.4); MEAN CORPUSCULAR HGB CONC 34.7 g/dL (32.0-36.0); MEAN CORPUSCULAR VOLUME 81 fl (80-97); MONOCYTES % (AUTO) 7.3 % (3-13); PLATELET COUNT 226 10^3/uL (150-450); RED BLOOD COUNT 5.89 10^6/uL (4.35-5.55); RED CELL DISTRIBUTION WIDTH 13.6 % (11.5-14.0); SEGMENTED NEUTROPHILS % (AUTO) 60.7 % (42-78); TOTAL CELLS COUNTED % (AUTO) 100 %; WHITE BLOOD COUNT 7.4 10^3/uL (4.0-10.5)
[2018-01-28 19:51] LABS: ALANINE AMINOTRANSFERASE 29 U/L (21-72); ALKALINE PHOSPHATASE 43 U/L (38-126); ANION GAP 10 (5-19); ASPARTATE AMINO TRANSFERASE 26 U/L (17-59); BILIRUBIN,DIRECT 0.3 mg/dL (0.0-0.4); BILIRUBIN,TOTAL 0.9 mg/dL (0.2-1.3); BLOOD UREA NITROGEN 13 mg/dL (7-20); CALCIUM 9.3 mg/dL (8.4-10.2); CARBON DIOXIDE 27 mmol/L (22-30); CHLORIDE 106 mmol/L (98-107); CREATINE KINASE 393 U/L (55-170); GLUCOSE 109 mg/dL (75-110); SODIUM 142.8 mmol/L (137-145); TOTAL PROTEIN 6.8 g/dL (6.3-8.2)
--- NOTE | 2018-01-28 20:17 | ER Document Report ---
ED General - General Chief Complaint: Nausea/Vomiting Stated Complaint: NAUSEA/VOMITTING Time Seen by Provider: 01/28/18 18:07 Mode of Arrival: Ambulatory Information source: Patient Notes: 47-year-old male patient presents with complaint of nausea, vomiting and possible dehydration. 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 Patient reports that he tries to stay hydrated using "smoothie drinks" however he states he has not drink much water. Patient also reports he has not had much to eat. Patient presented to the emergency department as he does have a history of acute renal failure approximately 1 year ago. Patient denies any pain, denies any fever. Patient denies the use of any daily medications. TRAVEL OUTSIDE OF THE [place] IN LAST 30 DAYS: No - Related Data Allergies/Adverse Reactions: No Known Allergies Allergy (Verified 01/28/18 17:32) Past Medical History - General Information source: Patient - Social History Smoking Status: Current Every Day Smoker Chew tobacco use (# tins/day): No Frequency of alcohol use: Occasional Drug Abuse: None Family History: Reviewed & Not Pertinent Patient has suicidal ideation: No Patient has homicidal ideation: No Renal/ Medical History: Reports: Other - Acute renal failure 2017. Denies: Hx Peritoneal Dialysis - Immunizations Immunizations up to date: Yes Hx Diphtheria, Pertussis, Tetanus Vaccination: Yes Review of Systems - Review of Systems Constitutional: No symptoms reported EENT: No symptoms reported Cardiovascular: No symptoms reported Respiratory: No symptoms reported Gastrointestinal: Nausea, Vomiting Genitourinary: No symptoms reported Male Genitourinary: No symptoms reported Musculoskeletal: No symptoms reported Skin: No symptoms reported Hematologic/Lymphatic: No symptoms reported Neurological/Psychological: No symptoms reported Physical Exam - Vital signs Vitals: Temp Pulse Resp BP Pulse Ox 98.1 F 86 20 133/88 H 100 01/28/18 17:35 01/28/18 17:35 01/28/18 17:35 01/28/18 17:35 01/28/18 17:35 - Notes Notes: PHYSICAL EXAMINATION: GENERAL: Well-appearing, well-nourished and in no acute distress. HEAD: Atraumatic, normocephalic. EYES: Pupils equal round and reactive to light, extraocular movements intact, sclera anicteric, conjunctiva are normal. ENT: Nares patent, oropharynx clear without exudates. Moist mucous membranes. NECK: Normal range of motion, supple without lymphadenopathy LUNGS: Breath sounds clear to auscultation bilaterally and equal. No wheezes rales or rhonchi. HEART: Regular rate and rhythm without murmurs ABDOMEN: Soft, nontender, nondistended abdomen. No guarding, no rebound. No masses appreciated. Musculoskeletal: Normal range of motion, no pitting or edema. No cyanosis. NEUROLOGICAL: Cranial nerves grossly intact. Normal speech, normal gait. Normal sensory, motor exams. PSYCH: Normal mood, normal affect. SKIN: Warm, Dry, normal turgor, no rashes or lesions noted. Course - Re-evaluation Re-evalutation: On my initial evaluation patient has already received approximately 500 cc normal saline. Patient reports that he is feeling a little bit better than when he first arrived. Patient denies any specific symptoms, patient reports that he has been overworking himself. 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 Patient reports he has been out of the sun all day long on a riding lawnmower and patient admittedly has not had adequate intake of water today patient also reports that he has not slept much in the last 36 hours. Patient reports that he feels exhausted however he wanted to be checked to make sure he was not in renal failure as he was in 2017. CBC is unremarkable, comprehensive metabolic panel reveals creatinine of 1.48, CK of 393, all electrolytes are within normal limits. Lactic acid is normal at 1.5. Will order patient additional 1000ml normal saline for a total of 2000ml and then discharge home. - Vital Signs Vital signs: Temp Pulse Resp BP Pulse Ox 98.1 F 86 20 133/88 H 100 01/28/18 17:35 01/28/18 17:35 01/28/18 17:35 01/28/18 17:35 01/28/18 17:35 - Laboratory Result Diagrams: 01/28/18 18:45 01/28/18 18:45 Laboratory results interpreted by me: 01/28/18 01/28/18 18:45 18:45 RBC 5.89 H Creatinine 1.48 H Est GFR (Non-Af Amer) 51 L Creatine Kinase 393 H Discharge - Discharge Clinical Impression: Dehydration Condition: Stable Disposition: HOME, SELF-CARE Additional Instructions: Dehydration Dehydration can result from vomiting or diarrhea, fever, or decreased intake of fluids. If severe, hospitalization and intravenous fluids may be required. Most cases are treated at home with fluids by mouth. For the next 24 hours, drink lots of clear fluids. Try to get three liters (3 quarts) of fluid per day. If vomiting occurs, continue to drink the fluids frequently (every 15 to 20 minutes), but in small amounts (one or two ounces). Depending on the type of dehydration, the doctor may prescribe antinausea medicine or potassium replacements. Call the doctor or return for re-examination if you become progressively weak, vomit repeatedly, or have other new symptoms. I am sending you home with some zofran for nausea. Please take 1 tablet every 4-6 hours as needed for nausea or vomiting. Keep hydrated, especially when out in the sun and heat. Referrals: [facility] [Provider Group] - Follow up as needed
[2018-01-28] MEDS ORDERED: ONDANSETRON ODT 4 MG TAB (6 TAB/ER DISP) PO PRN (20:39)
[2018-01-28 20:51] VITALS: BP 124/86
== END 2018-01-28 20:53 | disposition home or self-care (01) ==
LOC: ER 17:31
DX: E86.0 Dehydration (principal); R11.2 Nausea with vomiting, unspecified; F17.200 Nicotine dependence, unspecified, uncomplicated
CPT/HCPCS: 99284; 96360; 96361; 36415; 82550; 83605; 85025; 80053; S0119; J7030

== ENCOUNTER 2018-02-03 18:20 | Emergency (ER) | payer OTHER ==
--- NOTE | 2018-02-03 18:53 | ER Document Report ---
ED Medical Screen (RME) - General Chief Complaint: Syncope Stated Complaint: LIGHT HEADED/LOC Mode of Arrival: Wheelchair Information source: Patient Notes: 47 y.o male with PMHx of acute renal failure presents to the ED with lightheadedness. He reports that he stood up after mowing and became dizzy/ disoriented and fell and then 15 minutes later he fell again and was disoriented but denies any syncopal episodes. Pt was seen here 2 weeks ago for similar symptoms. I have greeted and performed a rapid initial assessment of the patient. A comprehensive ED assessment and evaluation of the patient, analysis of test results, and completion of the medical decision making process will be conducted by additional ED providers. PHYSICAL EXAM: General: Alert, appears well. HEENT: Normocephalic. Atraumatic. Dry mucous membranes. Neck: Supple. Cardiovascular: RRR Respiratory: Wheezing to bilateral lung sultana. Abdominal: No distension. Extremities: Moves all four extremities. Neurological: Normal cognition. AAOx4. Normal speech. Psychological: Normal affect. Normal Mood. Skin: Warm. Dry. Normal color. TRAVEL OUTSIDE OF THE [place] IN LAST 30 DAYS: No - Related Data Allergies/Adverse Reactions: No Known Allergies Allergy (Verified 02/03/18 18:21) Past Medical History - Social History Chew tobacco use (# tins/day): No Frequency of alcohol use: Occasional Drug Abuse: None Renal/ Medical History: Denies: Hx Peritoneal Dialysis - Immunizations Immunizations up to date: Yes Hx Diphtheria, Pertussis, Tetanus Vaccination: Yes Physical Exam - Vital signs Vitals: Temp Pulse Resp BP Pulse Ox 98.6 F 124 H 20 107/81 96 02/03/18 18:31 02/03/18 18:31 02/03/18 18:31 02/03/18 18:31 02/03/18 18:31 Course - Vital Signs Vital signs: Temp Pulse Resp BP Pulse Ox 98.6 F 124 H 20 107/81 96 02/03/18 18:31 02/03/18 18:31 02/03/18 18:31 02/03/18 18:31 02/03/18 18:31 Scribe Documentation - Scribe Written by Tasha:: Tasha Cowan 02/03/18 [id number] acting as scribe for :: Johnny
[2018-02-03] MEDS: NORMAL SALINE 1000 ML 1,000 ML IV PRN ×2 (19:23→19:24)
[2018-02-03] MEDS ORDERED: METOCLOPRAMIDE HCL INJ/PF 10 MG/2 ML SDV IV ONE (19:26)
--- NOTE | 2018-02-03 19:29 | ER Document Report ---
ED General - General Chief Complaint: Syncope Stated Complaint: LIGHT HEADED/LOC Time Seen by Provider: 02/03/18 18:46 Mode of Arrival: Wheelchair Notes: Patient is a 47 year old male that comes to the emergency department for chief complaint of dehydration, being overheated, and feeling lightheaded and dizzy with vision blurring twice and almost passing out while at work today. He also got cramps in his abdomen and legs. He works construction outside. He states that after he got overheated and lightheaded he vomited twice. He denies actually passing out or falling onto the ground. He reports current nausea. He denies any other current symptoms. He denies chest pain, shortness of breath , abdominal pain. Patient denies any daily medications, only reported medical history is dialysis that he got after getting severely dehydrated with a similar scenario in the past. He denies any surgeries. He smokes and drinks, denies any recreational drugs. TRAVEL OUTSIDE OF THE [place] IN LAST 30 DAYS: No - Related Data Allergies/Adverse Reactions: No Known Allergies Allergy (Verified 02/03/18 18:52) Past Medical History - General Information source: Patient - Social History Smoking Status: Current Every Day Smoker Chew tobacco use (# tins/day): No Frequency of alcohol use: Occasional Drug Abuse: None Lives with: Family Family History: Reviewed & Not Pertinent Patient has suicidal ideation: No Patient has homicidal ideation: No - Medical History Medical History: Negative Renal/ Medical History: Denies: Hx Peritoneal Dialysis Surgical Hx: Negative - Immunizations Immunizations up to date: Yes Hx Diphtheria, Pertussis, Tetanus Vaccination: Yes Review of Systems - Review of Systems Constitutional: See HPI EENT: No symptoms reported Cardiovascular: No symptoms reported Respiratory: No symptoms reported Gastrointestinal: See HPI Genitourinary: No symptoms reported Male Genitourinary: No symptoms reported Musculoskeletal: See HPI Skin: No symptoms reported Hematologic/Lymphatic: No symptoms reported Neurological/Psychological: See HPI Physical Exam - Vital signs Vitals: Temp Pulse Resp BP Pulse Ox 98.6 F 124 H 20 107/81 96 02/03/18 18:31 02/03/18 18:31 02/03/18 18:31 02/03/18 18:31 02/03/18 18:31 - Notes Notes: GENERAL: Alert, interacts well. No acute distress. HEAD: Normocephalic, atraumatic. EYES: Pupils equal, round, and reactive to light. Extraocular movements intact. ENT: Oral mucosa dry, tongue midline. NECK: Full range of motion. Supple. Trachea midline. LUNGS: Clear to auscultation bilaterally, no wheezes, rales, or rhonchi. No respiratory distress. HEART: Tachycardia, normal rhythm, no murmur. ABDOMEN: Soft, non-tender. Non-distended. Bowel sounds present in all 4 quadrants. EXTREMITIES: Moves all 4 extremities spontaneously. No edema, normal radial and dorsalis pedis pulses bilaterally. No cyanosis. BACK: no cervical, thoracic, lumbar midline tenderness. No saddle anesthesia, normal distal neurovascular exam. NEUROLOGICAL: Alert and oriented x3. Normal speech. [cranial nerves II through XII grossly intact]. PSYCH: Normal affect, normal mood. SKIN: Warm, dry, normal turgor. No rashes or lesions noted. Course - Re-evaluation Re-evalutation: Patient initially tachycardic, very dry mucous membranes, reporting vomiting, muscle cramps, dehydration. Given Reglan, giving 2 normal saline liter boluses. CBC shows mild leukocytosis, elevation of hemoglobin consistent with dehydration. Chemistry shows mildly elevated renal functioning, mildly elevated creatinine kinase, otherwise unremarkable. On reevaluation patient's tachycardia has completely resolved, he states he feels great, patient drinking fluids without any difficulty. Discussed workup. Patient stating he is ready to go home. Patient will follow up with primary care for evaluation of his creatinine, discussed hydration, medication, return precautions in detail. Patient states satisfaction and agreement. - Vital Signs Vital signs: Temp Pulse Resp BP Pulse Ox 98.1 F 88 16 110/81 96 02/03/18 21:15 02/03/18 21:15 02/03/18 21:15 02/03/18 21:15 02/03/18 21:15 - Laboratory Result Diagrams: 02/03/18 19:11 02/03/18 19:11 Laboratory results interpreted by me: 02/03/18 02/03/18 19:11 19:11 WBC 12.1 H RBC 6.44 H Hgb 17.9 H Hct 51.7 H Seg Neutrophils % 79.2 H Absolute Neutrophils 9.5 H Creatinine 1.46 H Est GFR (Non-Af Amer) 52 L Creatine Kinase 413 H Discharge - Discharge Clinical Impression: Dehydration, Near syncope Heat exhaustion Qualifiers: Encounter type: initial encounter Qualified Code(s): T67.5XXA - Heat exhaustion , unspecified, initial encounter Condition: Stable Disposition: HOME, SELF-CARE Additional Instructions: Your workup shows dehydration, irritation to the kidneys, some elevation of muscle protein in your blood. You have been rehydrated, continue rehydration, have your kidney functioning rechecked with primary care on close follow-up, see referral. Return if you worsen in anyway including passing out, returned vomiting, or any other concerning symptoms. Forms: Return to Work
[2018-02-03 19:31] LABS: ABSOLUTE BASOPHILS # (AUTO) 0.1 10^3/uL (0.0-0.2); ABSOLUTE LYMPHOCYTES (AUTO) 1.7 10^3/uL (0.5-4.7); ABSOLUTE MONOCYTES (AUTO) 0.6 10^3/uL (0.1-1.4); ABSOLUTE NEUT (AUTO) 9.5 10^3/uL (1.7-8.2); BASOPHILS % (AUTO) 1.1 % (0-2); EOSINOPHILS % (AUTO) 0.1 % (0-6); HEMATOCRIT 51.7 % (37.9-51.0); HEMOGLOBIN 17.9 g/dL (13.5-17.0); LYMPHOCYTES % (AUTO) 14.3 % (13-45); MEAN CORPUSCULAR HEMOGLOBIN 27.8 pg (27.0-33.4); MEAN CORPUSCULAR HGB CONC 34.7 g/dL (32.0-36.0); MEAN CORPUSCULAR VOLUME 80 fl (80-97); MONOCYTES % (AUTO) 5.3 % (3-13); PLATELET COUNT 278 10^3/uL (150-450); RED BLOOD COUNT 6.44 10^6/uL (4.35-5.55); RED CELL DISTRIBUTION WIDTH 13.6 % (11.5-14.0); SEGMENTED NEUTROPHILS % (AUTO) 79.2 % (42-78); TOTAL CELLS COUNTED % (AUTO) 100 %; WHITE BLOOD COUNT 12.1 10^3/uL (4.0-10.5)
[2018-02-03 19:50] LABS: ALANINE AMINOTRANSFERASE 25 U/L (21-72); ALBUMIN 4.2 g/dL (3.5-5.0); ALKALINE PHOSPHATASE 49 U/L (38-126); ANION GAP 14 (5-19); ASPARTATE AMINO TRANSFERASE 26 U/L (17-59); BILIRUBIN,DIRECT 0.3 mg/dL (0.0-0.4); BILIRUBIN,TOTAL 0.9 mg/dL (0.2-1.3); BLOOD UREA NITROGEN 16 mg/dL (7-20); CALCIUM 9.6 mg/dL (8.4-10.2); CARBON DIOXIDE 25 mmol/L (22-30); CHLORIDE 105 mmol/L (98-107); CREATINE KINASE 413 U/L (55-170); GLUCOSE 103 mg/dL (75-110); POTASSIUM 4.7 mmol/L (3.6-5.0); TOTAL PROTEIN 7.1 g/dL (6.3-8.2)
[2018-02-03] MEDS ORDERED: ONDANSETRON ODT 4 MG TAB (6 TAB/ER DISP) PO PRN (20:59)
[2018-02-03 21:21] VITALS: BP 110/81
== END 2018-02-03 21:18 | disposition home or self-care (01) ==
LOC: ER 18:20
DX: T67.5XXA Heat exhaustion, unspecified, initial encounter (principal); X58.XXXA Exposure to other specified factors, initial encounter; Y93.H3 Activity, building and construction; Y99.0 Civilian activity done for income or pay; E86.0 Dehydration; R55 Syncope and collapse; R11.2 Nausea with vomiting, unspecified; R25.2 Cramp and spasm; F17.200 Nicotine dependence, unspecified, uncomplicated; R00.0 Tachycardia, unspecified; D72.829 Elevated white blood cell count, unspecified
CPT/HCPCS: 99284; 96361; 96374; 36415; 82550; 83735; 85025; 80053; J2765; J7030

== ENCOUNTER 2018-02-23 19:34 | Emergency (ER) | payer OTHER ==
[2018-02-23 19:43] VITALS: BP 115/78
--- NOTE | 2018-02-23 20:57 | ER Document Report ---
HPI - HPI Pain Level: 4 Notes: Patient is a 47-year-old male no significant past medical history who presents to the ED complaining of an insect bite to his right medial posterior second digit of the hand near the webspace 1 day. Patient states that he felt something bite him and he has had pain since then. Patient states that he did have one episode earlier this morning when he felt a little nauseated, but that resolved within 30 seconds he said. Patient states that he did notice some discharge of the one area that was dried up this afternoon, but he has not noticed any other drainage. Patient states that the pain does not radiate up his dorsal proximal hand. Denies any drug allergies. He has not noticed any red streaking. Denies any headache, fever, neck pain, URI, sore throat, chest pain, palpitations, syncope, cough, shortness of breath, wheeze, dyspnea, abdominal pain, nausea/vomiting/diarrhea, urinary retention, dysuria, hematuria. - ROS Systems Reviewed and Negative: Yes All other systems reviewed and negative - REPRODUCTIVE Reproductive: DENIES: : Past Medical History - Social History Smoking Status: Never Smoker Family History: Reviewed & Not Pertinent Renal/ Medical History: Denies: Hx Peritoneal Dialysis - Immunizations Immunizations up to date: Yes Hx Diphtheria, Pertussis, Tetanus Vaccination: Yes Vertical Provider Document - CONSTITUTIONAL Agree With Documented VS: Yes Notes: PHYSICAL EXAMINATION: GENERAL: Well-appearing, well-nourished and in no acute distress. LUNGS: Breath sounds clear to auscultation bilaterally and equal. No wheezes rales or rhonchi. HEART: Regular rate and rhythm without murmurs, rubs, gallops. Musculoskeletal: Rt hand/fingers: FROM to passive/active. Strength 5+/5. N/v intact distal. Extremities: No cyanosis, clubbing, or edema b/l. Peripheral pulses 2+. Capillary refill less than 3 seconds. NEUROLOGICAL: Cranial nerves grossly intact. Normal speech, normal gait. Normal sensory, motor exams PSYCH: Normal mood, normal affect. SKIN: Rt 2nd digit: there is a 3mm and 2mm raised erythemic area where the alleged bites took place. + mild tenderness to palp w/o streaks, purulence, obvious fluctuance. + erythema localized without diffuse cellulitis noted. No necrotic tissue noted. - INFECTION CONTROL TRAVEL OUTSIDE OF THE [place] IN LAST 30 DAYS: No Course - Re-evaluation Re-evalutation: 02/23/18 20:54 Patient is an afebrile, well-hydrated, 47-year-old male presents to the ED with an insect bite between the second and third digits of his right hand. It does appear that he does have some mild cellulitis localized. Vitals are acceptable without any significant tachycardia, tachypnea, or hypoxia. PE is otherwise unremarkable for any neurovascular compromise, obvious tendon/ligament rupture, obvious fracture/dislocation, septic joint. Low suspicion for any other sepsis or lymphangitis. Needle incision and drainage performed and only a minimal scant purulence was expressed from the smaller lesion. I was unable to have enough substance for a wound culture. Wound dressing was placed and wound instructions reviewed. I will be sending him home with a prescription for Keflex and Bactrim. Conservative measures otherwise for symptoms. Recheck with your PCM in 2-3 days. Return to the ED with any worsening/concerning symptoms otherwise as reviewed in discharge. Patient is in agreement. - Vital Signs Vital signs: Temp Pulse Resp BP Pulse Ox 98.4 F 87 17 115/78 96 02/23/18 19:42 02/23/18 19:42 02/23/18 19:42 02/23/18 19:42 02/23/18 19:42 Procedures - Incision and Drainage Right Finger 2nd digit Time completed: 20:50 - Patient tolerated procedure well without complications. unable to obtain wound cx. Type: Simple I&D procedure: Betadine prep applied Incision Method: Incision made with needle Amount/type of drainage: scant to no purulence. Minimal blood Discharge - Discharge Clinical Impression: Insect bite Qualifiers: Encounter type: initial encounter Qualified Code(s): W57.XXXA - Bitten or stung by nonvenomous insect and other nonvenomous arthropods, initial encounter Cellulitis Qualifiers: Site of cellulitis: extremity Site of cellulitis of extremity: finger Laterality: right Qualified Code(s): L03.011 - Cellulitis of right finger Condition: Stable Disposition: HOME, SELF-CARE Instructions: Insect Bites ([facility]), Cephalexin ([facility]), Trimethoprim-Sulfa ([facility]) Additional Instructions: Keep the skin clean Wash with soap and water Tylenol/ibuprofen if needed Triple antibiotic ointment daily Epsom salt soaks Take medication as directed Monitor for any worsening symptoms Recheck with your PCM in 2-3 days Return to the ED with any worsening symptoms and/or development of fever, headache, chest pain, palpitations, syncope, shortness of breath, trouble breathing, abdominal pain, n/v/d, abscess, purulent discharge, red streaks, worsening swelling, or other worsening symptoms that are concerning to you. Prescriptions: Cephalexin Monohydrate [Keflex 500 mg Capsule] 500 mg PO TID #30 capsule Sulfamethoxazole/Trimethoprim [Bactrim Ds Tablet] 1 each PO BID #20 tablet Referrals: [facility] [Provider Group] - Follow up as needed [facility] [Provider Group] - Follow up as needed
== END 2018-02-23 21:21 | disposition home or self-care (01) ==
LOC: ER 19:34
PROC: 0H9FXZZ Drainage of Right Hand Skin, External Approach (ICD-10-PCS; principal; 2018-02-23)
DX: L03.011 Cellulitis of right finger (principal); R11.0 Nausea; W57.XXXA Bitten or stung by nonvenomous insect and other nonvenomous arthropods, initial encounter
CPT/HCPCS: 99281

== ENCOUNTER 2019-01-09 20:14 | Emergency (ER) | payer MEDICAID, OTHER ==
[2019-01-09 20:23] VITALS: BP 109/87
--- NOTE | 2019-01-09 22:32 | RADIOLOGY REPORT (SQ) ---
EXAM DESCRIPTION: Right hand RadLex: XR HAND 3 OR MORE VIEWS Views: 3 CLINICAL HISTORY: 48 years Male, punched wall COMPARISON: None. FINDINGS: There is acute transverse fracture across the proximal shaft of the 4th metacarpal, with half shaft dorsal displacement and slight lateral angulation. There is also lucency through the distal one 3rd of the 5th metacarpal, in an area of remodeling, suggesting an acute on chronic fracture, with slight palmar angulation. Chronic remodeling of the distal head of the 1st metacarpal suggests old healed fracture. No hyperdense foreign bodies. IMPRESSION: 1. Acute fractures of the 4th and 5th metacarpals, as described
[2019-01-09] MEDS ORDERED: HYDROCODONE/ACETAMINOPHEN 5-325 MG TABLET PO ONE (23:22)
--- NOTE | 2019-01-10 00:19 | ER Document Report ---
ED General - General Chief Complaint: Hand Injury Stated Complaint: HAND INJURY Time Seen by Provider: 01/09/19 22:44 Primary Care Provider: MORENITA RODRIGUEZ DO [ACTIVE STAFF] - Follow up in 3-5 days (call office in the morning to make a close follow up appointment) Notes: Patient is a pleasant 48-year-old male who punched a wall and now has swelling over the dorsum of his right hand. He says he has a lot of pain in the ulnar aspect of his hand. No weakness or numbness into the fingers of the hand. He says it does hurt in his hand whenever he tries to move his fourth or fifth digits. He denies any pain anywhere else. He does admit to a previous boxer fracture of the same hand. TRAVEL OUTSIDE OF THE [place] IN LAST 30 DAYS: No - Related Data Allergies/Adverse Reactions: No Known Allergies Allergy (Verified 02/03/18 18:52) Past Medical History - Social History Smoking Status: Unknown if Ever Smoked Frequency of alcohol use: None Drug Abuse: None Family History: Reviewed & Not Pertinent Patient has suicidal ideation: No Patient has homicidal ideation: No Renal/ Medical History: Denies: Hx Peritoneal Dialysis - Immunizations Immunizations up to date: Yes Hx Diphtheria, Pertussis, Tetanus Vaccination: Yes Review of Systems - Review of Systems Notes: My Normal Review Basic REVIEW OF SYSTEMS: CONSTITUTIONAL : Denies fever, chills, or sweats. Denies recent illness. MUSCULOSKELETAL: Pain to right hand. SKIN: Denies rash or skin lesions. NEUROLOGICAL: Denies sensory or motor loss. ALL OTHER SYSTEMS REVIEWED AND NEGATIVE. Physical Exam - Vital signs Vitals: Temp Pulse Resp BP Pulse Ox 98.7 F 104 H 20 109/87 H 95 01/09/19 20:22 01/09/19 20:22 01/09/19 20:22 01/09/19 20:22 01/09/19 20:22 - Notes Notes: General Appearance: Well nourished, alert, cooperative, no acute distress, moderate obvious discomfort. Vitals: reviewed, See vital signs table. Eyes: Conjuctiva clear Extremities: good pulses in all extremities, obvious swelling to the dorsum of the right hand. Wrist is nontender to palpation. Patient does have restricted function of the fourth and fifth digits which I feel is related to pain and swelling in the hand. Patient is obvious pain with any attempt of touching the fourth or fifth digits on the dorsum of the right hand. Remainder of hand is nontender. No pain over scaphoid. Distal sensation in all fingertips. Good cap refill in all fingertips. Good radial and ulnar pulses. Neuro: speech clear, oriented x 3, normal affect, responds appropriately to questions. Course - Re-evaluation Re-evalutation: 01/10/19 00:19 Patient does have a fracture of the fourth and fifth metacarpal. Fifth is minimally displaced. The fourth does have some displacement however it is very swollen and I do not feel that I will be able to reduce displacement to an amount that will make a significant difference. At this time I will place him in a splint and have him follow-up closely with the orthopedist doctor. I encouraged him to call the orthopedist in the morning. I talked to him about splint precautions. Encouraged return to ER immediately if he has swelling and pain or numbness in the fingers despite loosening the splint or if he has any further concerns. Patient agrees with plan and will be discharged home. Dictation of this chart was performed using voice recognition software; therefore, there may be some unintended grammatical errors. 01/10/19 03:42 - Vital Signs Vital signs: Temp Pulse Resp BP Pulse Ox 98.7 F 104 H 20 109/87 H 95 01/09/19 20:22 01/09/19 20:22 01/09/19 20:22 01/09/19 20:22 01/09/19 20:22 Procedures - Immobilization Right Hand Pre-Proc Neuro Vasc Exam: Normal Immobilizer type: Ulnar Performed by: PCT Post-Proc Neuro Vasc Exam: Normal Discharge - Discharge Clinical Impression: Hand fracture, right Qualifiers: Encounter type: initial encounter Fracture type: closed Qualified Code(s): S62.91XA - Unspecified fracture of right wrist and hand, initial encounter for closed fracture Condition: Good Disposition: HOME, SELF-CARE Additional Instructions: Your splint has an Mono wrap around it. Sometimes you can have increased swelling in your arm which will cause a splint to be too tight. Please loosen the Mono wrap around the splint if you start having any increasing pain or swelling or numbness into your hand. Please return to ER immediately if you continue have these symptoms despite loosening the splint. I have given you a strong medication called [place]. Please be aware that Springfield does have Tylenol (acetaminophen) in it. Please make sure you do not take more than 4000 mg of acetaminophen a day. Do not drive or care for children after you have taken this medication as they will make you sleepy and sometimes impair judgment. Please call Dr. Rodriguez's office Thursday morning to make a close follow-up appointment. Referrals: MORENITA RODRIGUEZ, [ACTIVE STAFF] - Follow up in 3-5 days (call office in the morning to make a close follow up appointment)
[2019-01-10] MEDS ORDERED: HYDROCODONE/ACETAMINOPHEN 5-325 MG (6 TAB/ER DISP) PO PRN (00:21)
== END 2019-01-10 00:27 | disposition home or self-care (01) ==
LOC: ER 20:14
DX: S62.324A Displaced fracture of shaft of fourth metacarpal bone, right hand, initial encounter for closed fracture (principal); S62.306A Unspecified fracture of fifth metacarpal bone, right hand, initial encounter for closed fracture; W22.01XA Walked into wall, initial encounter
CPT/HCPCS: 99283

== ENCOUNTER 2019-08-09 17:07 | Emergency (ER) | payer MEDICAID, OTHER ==
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
--- NOTE | 2019-08-09 18:55 | RADIOLOGY REPORT (SQ) ---
EXAM DESCRIPTION: CT LUMBAR SPINE WITHOUT COMPLETED DATE/TIME: 08/09/2019 6:29 pm REASON FOR STUDY: back pain difficulty walking COMPARISON: Lumbar spine CT 08/27/2017 TECHNIQUE: Axial images acquired through the lumbar spine without intravenous contrast. Images revi ewed with lung, soft tissue and bone windows. Reconstructed coronal and sagittal MPR images reviewe d. All images stored on PACS. All CT scanners at this facility use dose modulation, iterative reconstruction, and/or weight based d osing when appropriate to reduce radiation dose to as low as reasonably achievable (ALARA). [facility]: Dose Right [facility]: CareDose [facility]: Dose Right [facility]: Teradose 4D [facility]: ProfStream RADIATION DOSE: 15 mGy. LIMITATIONS: No contrast FINDINGS: SEGMENTATION: Normal. No transitional anatomy. ALIGNMENT: Normal. VERTEBRAL BODIES: No fractures. No dislocation. No acute findings. DISCS: L1-L2: There is a small central disc protrusion/ herniation with superior migration of the extruded f ragment, best shown on axial image 26 sagittal reconstruction image 27. This finding along with mild facet and ligament hypertrophy and mild disc bulging causes borderline central canal narrowing. No foraminal stenosis. L2-L3: Mild diffuse posterior disc bulging and mild facet and ligament hypertrophy cause mild central canal stenosis best shown on axial image 42. No significant foraminal narrowing. L3-L4: Minimal posterior disc bulging and mild bilateral facet and ligament hypertrophy is present wi thout central or foraminal stenosis L4-L5: Small central and right paracentral disc protrusion flattens the thecal sac near the takeoff o f the right proximal L5 nerve root in the lateral recess. This is best shown on axial image 70. Mil d central canal narrowing. Mild inferior right foraminal narrowing without exiting L4 nerve root imp ingement. No significant left foraminal narrowing L5-S1: Mild diffuse posterior disc bulging is present with mild facet hypertrophy. No central or for aminal stenosis PEDICLES, TRANSVERSE PROCESSES: No fractures. No dislocation. No acute findings. FACETS, POSTERIOR ELEMENTS: No fractures. No dislocation. Mild multilevel facet arthropathy. HARDWARE: None in the spine. VISUALIZED RIBS: No fractures. SOFT TISSUES: No significant or acute finding in adjacent soft tissues. OTHER: No other significant finding. IMPRESSION: Multilevel degenerative disc changes as above. TECHNICAL DOCUMENTATION: JOB ID: [id number] Quality ID # [id number]: Final reports with documentation of one or more dose reduction techniques (e.g., Au tomated exposure control, adjustment of the mA and/or kV according to patient size, use of iterative reconstruction technique) 2010 [employer]- All Rights Reserved Reading location - IP/workstation name: [email or web address]
[2019-08-09 19:38] LABS: APPEARANCE,URINE CLEAR; BILIRUBIN,URINE NEGATIVE (NEGATIVE); COLOR,URINE YELLOW; GLUCOSE, URINE NEGATIVE (NEGATIVE); KETONES,URINE NEGATIVE (NEGATIVE); LEUKOCYTE ESTERASE,URINE NEGATIVE (NEGATIVE); NITRITE,URINE NEGATIVE (NEGATIVE); PROTEIN,URINE NEGATIVE (NEGATIVE); URINE SPECIFIC GRAVITY 1.025
[2019-08-09] MEDS ORDERED: MORPHINE SULFATE 10 MG/ML INJ IM ONE (20:33)
[2019-08-09] MEDS ORDERED: ONDANSETRON 4 MG TAB.RAPDIS PO ONE (20:33)
[2019-08-09] MEDS ORDERED: DEXAMETHASONE SOD PHOS INJ 10 MG/1 ML VIAL IM ONE (20:33)
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
[2019-08-09 20:57] VITALS: BP 117/79
== END 2019-08-09 21:08 | disposition home or self-care (01) ==
LOC: ER 17:07
DX: M51.16 Intervertebral disc disorders with radiculopathy, lumbar region (principal); X50.9XXA Other and unspecified overexertion or strenuous movements or postures, initial encounter; Y93.89 Activity, other specified; F17.200 Nicotine dependence, unspecified, uncomplicated; M47.9 Spondylosis, unspecified; M62.830 Muscle spasm of back
CPT/HCPCS: 99284; 96372; 81001; 72131; S0119; J2270; J1100